=== PATIENT | female | born 1960 | race Caucasian/White ===

== ENCOUNTER 2022-08-17 12:41 | Day surgery (SDC) | payer BC ==
[~2022-08-17] VITALS: Ht 149.9 cm; Wt 74.5 kg
[2022-08-17 13:47] VITALS: BP 140/77; PULSE 70; TEMP 97.3
[2022-08-17 15:00] VITALS: BP 142/62; PULSE 72; TEMP 97.2
[2022-08-17 15:15] VITALS: BP 146/82; PULSE 74
[2022-08-17 15:30] VITALS: BP 144/75; PULSE 76
--- NOTE | 2022-08-17 15:45 | NUR ---
1500 RETURNS TO ROOM 3 PER CART. AWAKE, ALERT. AMBULATES TO RECLINER WITH STAND BY ASSIST. SEATED IN RECLINER WITH LEGS ELEVATED. RESP CLEAR, UNLABORED. DENIES PAIN OR DYSPHAGIA. MONITOR ON, VITAL SIGNS OBTAINED. IN ROOM. 1512 DR. POWELL HERE TO VISIT WITH PATIENT. 1520 TOLERATES PO SODA AND MUFFIN WITHOUT NAUSEA. SWALLOWS WITHOUT DIFFICULTY. 1530 DISCHARGE INSTRUCTIONS REVIEWED. PATIENT AND VERBALIZE UNDERSTANDING. COPY OF INSTRUCTIONS AND EDUCATIONAL MATERIAL TO DISCHARGE FOLDER. 1540 SITS IN CHAIR. DRESSES SELF. 1545 DISCHARGE PER WHEELCHAIR.
== END 2022-08-17 15:45 | disposition home or self-care (01) ==
LOC: SDCO 12:41
DX: K22.70 Barrett's esophagus without dysplasia (principal); K21.00 Gastro-esophageal reflux disease with esophagitis, without bleeding; K44.9 Diaphragmatic hernia without obstruction or gangrene
CPT/HCPCS: J2704; J7030

== ENCOUNTER 2022-09-26 10:41 | Day surgery (SDC) | payer BC ==
[2022-09-26] VITALS (8 sets, daily range): BP systolic 120–160; BP diastolic 52–68; PULSE 59–71; TEMP 98.1–98.2
[~2022-09-26] VITALS: Ht 149.9 cm; Wt 73.1 kg
--- NOTE | 2022-09-26 18:50 | NUR ---
Pt. to the floor from PACU. Vitals stable. Abd. incsions x6 with bandaids. Pt. denies further needs, report given to BENITO Santamaria.
[2022-09-27 00:36] VITALS: BP 142/62; PULSE 74; TEMP 98.3
[2022-09-27 04:19] VITALS: BP 121/57; PULSE 75; TEMP 98.2
[2022-09-27 07:35] VITALS: BP 138/67; PULSE 75; TEMP 98.2
--- NOTE | 2022-09-27 08:30 | NUR ---
Pt. sitting up in bed. Pt. is a&OX3, assessment complete. INT to lt. wrist. Pt. reports pain at a 3 on pain scale with movement. Pt. denies further needs, call light within reach.
--- NOTE | 2022-09-27 10:00 | NUR ---
TYREE met with the patient to discuss discharge plan. The patient lives in [place] with her , J Luis (ph#[phone]), their son, [id number], and grandchildren. She reports independence with ADLs and does not have any DME. The patient's PCP is Dr. Joseph Wynn and she receives her medications from [facility]. The patient does not have a DPOA-HC, but she was interested in a form. TYREE provided. The patient plans to return home with her family upon discharge. The patient was interested in obtaining a financial assistance application. TYREE notified the financial counselor. No additional needs at this time. *Discharge plan: home with family*
[2022-09-27] MEDS ORDERED: ULTRAM 50MG TAB50 MG PO (12:25)
[2022-09-27 12:26] VITALS: BP 128/61; PULSE 93; TEMP 98.3
--- NOTE | 2022-09-27 14:23 | NUR ---
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
--- NOTE | 2022-09-27 16:00 | NUR ---
pt. has med discharge criteria. Pt. given and reviewed discharge paper work. Pt. voices understanding. INT discontinued from lt. wrist. Pt. denies further needs. Pt. escorted out by wheelchair.
== END 2022-09-27 16:00 | disposition home or self-care (01) ==
LOC: SDCO 10:41 → SURG 18:37 → SDCO 09-27 16:00
DX: K44.9 Diaphragmatic hernia without obstruction or gangrene (principal); K31.89 Other diseases of stomach and duodenum; Z28.311 Partially vaccinated for COVID-19
CPT/HCPCS: OP; C1781; J0690; J1100; J1885; J2405; J2704; J2710; J3010; J7120